=== PATIENT | female | born 1950 | race Caucasian/White ===

== ENCOUNTER 2025-07-17 08:12 | Day surgery (SDC) | payer MEDICARE, OTHER ==
[~2025-07-17] VITALS: Ht 167.6 cm; Wt 57.4 kg
[2025-07-17] VITALS (7 sets, daily range): BP systolic 92–101; BP diastolic 53–64; PULSE 60; RESP 12–16; TEMP 97.8; O2SAT 95–99
[2025-07-17] MEDS ORDERED: midazolam 1 mg/ML 2ml injection ONE (08:37)
[2025-07-17] MEDS ORDERED: fentaNYL/PF 50MCG/1 ML 2ML syringe ONE (08:37)
[2025-07-17] MEDS ORDERED: APIX5TAB3 PO (08:57)
[2025-07-17] MEDS ORDERED: UBID50TA3 PO (08:57)
[2025-07-17] MEDS ORDERED: MAGN100T5 PO (08:57)
[2025-07-17] MEDS ORDERED: MULT-1249 PO (08:57)
[2025-07-17] MEDS ORDERED: OMEG-166 PO (08:57)
[2025-07-17] MEDS ORDERED: COLL1POW3 (08:57)
[2025-07-17] MEDS ORDERED: ASCO500C17 PO (08:57)
[2025-07-17] MEDS ORDERED: CALC-212 PO (08:57)
[2025-07-17] MEDS ORDERED: PHYT100T PO (08:57)
[2025-07-17] MEDS ORDERED: normal saline 1000ml 1,000 ML IV SCH (09:15)
--- NOTE | 2025-07-17 17:32 | CARDIOLOGY REPORT ---
APPROVED REPORT EXAM: Focused, limited transesophageal echocardiogram with color flow Doppler, 3D imaging, and saline study. Patient Location: [facility] Blood Pressure: 129 /93 mmHg Heart Rate: 115 bpm Rhythm: SINUS WITH BBB Indications ASSESS RIGHT HEART / PACER WIRES FOR THROMBUS VS [facility]I PACEMAKER ? DATE ABLATION ?DATE FAILED ANTICOAGULATION X MULTIPLE ATTEMPS / AGENTS PEG PROBE PASSED BY: Delia DENIS MD Scale Expert: Delia Denis MD Previous echo: 07/10/25 UNK CVC EF: 57%; nlLV; nlRV; mLAE; mobileIAS; mMR; mTR; noPE LEFT VENTRICLE Grossly normal LV size and function, limited evaluation due to focused exam. LVEF is 60%. LTD RIGHT VENTRICLE RV is normal size and function. ATRIA Left atrium appears at least moderately dilated. Left atrial appendage is visualized in multiple planes and appears normal without debris. Left upper pulmonary vein identified and isolated by 2D and color Doppler.Thinned IAS - Intermittent, trickle flow (L to R) detected by color flow Doppler. Saline study was performed with 1 IV injection of 10 ccs of agitated normal saline at rest. Negative saline study for right to left flow. Right atrium appears at least mildly dilated with prominent mobile Chiari well visualized. Two well visualized pacing wires are present. Appears to be string-like mobile structure (likely thrombus) attached to the atrial pacing wire that measures 1.98cm in length. Best visalized in loop 26, 30 The tip is highly mobile moving to and from superior and inferior vena cava. PERICARDIUM Normal pericardium. No effusion. CONCLUSION Grossly normal LV size and function, limited evaluation due to focused exam. LVEF is 60%. LTD RV is normal size and function. Left atrium appears at least moderately dilated. Left atrial appendage is visualized in multiple planes and appears normal without debris. Left upper pulmonary vein identified and isolated by 2D and color Doppler.Thinned IAS - Intermittent, trickle flow (L to R) detected by color flow Doppler. Saline study was performed with 1 IV injection of 10 ccs of agitated normal saline at rest. Negative saline study for right to left flow. Right atrium appears at least mildly dilated with prominent mobile Chiari well visualized. Two well visualized pacing wires are present. Appears to be string-like mobile structure (likely thrombus) attached to the atrial pacing wire that measures 1.98cm in length. Best visalized in loop 26, 30 The tip is highly mobile moving to and from superior and inferior vena cava. Normal pericardium. No effusion. Conclusion Grossly normal LV size and function, limited evaluation due to focused exam. LVEF is 60%. LTD RV is normal size and function. Left atrium appears at least moderately dilated. Left atrial appendage is visualized in multiple planes and appears normal without debris. Left upper pulmonary vein identified and isolated by 2D and color Doppler.Thinned IAS - Intermittent, trickle flow (L to R) detected by color flow Doppler. Saline study was performed with 1 IV injection of 10 ccs of agitated normal saline at rest. Negative saline study for right to left flow. Right atrium appears at least mildly dilated with prominent mobile Chiari well visualized. Two well visualized pacing wires are present. Appears to be string-like mobile structure (likely thrombus) attached to the atrial pacing wire that measures 1.98cm in length. Best visalized in loop 26, 30 The tip is highly mobile moving to and from superior and inferior vena cava. Normal pericardium. No effusion.
== END 2025-07-17 10:45 | disposition home or self-care (01) ==
LOC: SSTAY O 08:12
PROVIDERS: ATTEND Student in an Organized Health Care Education/Training Program
DX: R94.39 Abnormal result of other cardiovascular function study (principal); I48.91 Unspecified atrial fibrillation; I50.9 Heart failure, unspecified; Z79.899 Other long term (current) drug therapy; Z88.5 Allergy status to narcotic agent; Z88.8 Allergy status to other drugs, medicaments and biological substances
CPT/HCPCS: 76376; 93312; 93325; 99152; J2250; J3010; J7030